=== PATIENT | female | born 1960 | race American Indian/Alaskan Native ===

== ENCOUNTER → 2024-04-17 | Emergency (ER) | payer OTHER ==
[~2024-04-17] VITALS: Ht 162.6 cm; Wt 66.2 kg
[~2024-04-17] MED LIST: COZAAR25 MG; KETO10TA2 PO; KETOROLAC TROMETHAMINE 30 MG VIAL IM ONE; LEXAPRO5 MG; OZEMPIC0.25 MG/02
[2024-04-17 19:37] VITALS: BP 107/54; O2SAT 100
== END | disposition home or self-care (01) ==
LOC: ER 18:20
DX: S82.61XA Displaced fracture of lateral malleolus of right fibula, initial encounter for closed fracture (principal); W18.39XA Other fall on same level, initial encounter; Y93.89 Activity, other specified; Y92.89 Other specified places as the place of occurrence of the external cause; Y99.9 Unspecified external cause status; I10 Essential (primary) hypertension; E11.9 Type 2 diabetes mellitus without complications; Z79.84 Long term (current) use of oral hypoglycemic drugs; Z88.8 Allergy status to other drugs, medicaments and biological substances
CPT/HCPCS: 29505; 73560; 73590; 73610; 96372; 99284; J1885